=== PATIENT | female | born 1980 | race American Indian/Alaskan Native ===

== ENCOUNTER 2016-08-18 12:19 | Emergency (ER) | payer MEDICAID ==
[2016-08-18] MEDS ORDERED: ZOFRAN ONE (12:33)
[2016-08-18] MEDS ORDERED: ZOFRAN IV ONE (13:30)
[2016-08-18] MEDS ORDERED: NACL 0.9% 1000 ML 1,000 ML IV ONE (14:06)
[2016-08-18] MEDS ORDERED: ZOFRAN ODT PO/SL ONE (14:06)
[2016-08-18] MEDS ORDERED: PEPCID IV ONE (14:09)
[2016-08-18 14:53] LABS: Basophils % (Auto) 0.3 % (0.0-1.8); Eosinophils % (Auto) 0.1 % (0.0-4.3); Hematocrit 41.7 % (30.3-42.9); Hemoglobin 13.7 gm/dl (10.1-14.3); Mean Corpuscular HGB Conc 33 % (30-34); Mean Corpuscular Hemoglobin 29 pg (28-32); Mean Corpuscular Volume 88 fl (79-97); Platelet Count 211 K/mm3 (140-440); Red Blood Count 4.75 M/mm3 (3.65-5.03); Red Cell Distribution Width 14.1 % (13.2-15.2); White Blood Count 4.4 K/mm3 (4.5-11.0)
[2016-08-18 15:02] LABS: INR 0.91 (0.87-1.13); Partial Thromboplastin Time 28.9 Sec. (24.2-36.6)
[2016-08-18 15:03] LABS: Amylase 116 units/L (27-131); Anion Gap 17 mmol/L; Blood Urea Nitrogen 8 mg/dL (7-17); Calcium 9.2 mg/dL (8.4-10.2); Carbon Dioxide 29 mmol/L (22-30); Chloride 101.6 mmol/L (98-107); Creatine Kinase MB 1.8 ng/mL (0.0-4.0); Glucose 103 mg/dL (65-100); Potassium 3.8 mmol/L (3.6-5.0); Sodium 144 mmol/L (137-145)
[2016-08-18 15:05] LABS: Alanine Aminotransferase 10 units/L (7-56); Albumin 4.3 g/dL (3.9-5); Albumin/Globulin Ratio 1.3 %; Alkaline Phosphatase 46 units/L (35-129); Bilirubin,Total 0.4 mg/dL (0.1-1.2); Lipase 22 units/L (13-60); Total Protein 7.5 g/dL (6.3-8.2)
[2016-08-18 15:08] LABS: Bilirubin,Direct < 0.2 mg/dL (0-0.2)
[2016-08-18 16:18] LABS: Bilirubin,Urine NEG (Negative); Blood,Urine NEG (Negative); Ketones,Urine TR mg/dL (Negative); Leukocyte Esterase,Urine NEG (Negative); Mucus,Urine 3+ /HPF; Nitrite,Urine NEG (Negative); Urobilinogen,Urine < 2.0 mg/dL (<2.0)
--- NOTE | 2016-08-18 16:18 | Emergency Department Report ---
ED General Adult HPI - General Chief complaint: Nausea/Vomiting/Diarrhea Stated complaint: WEAKNESS Time Seen by Provider: 08/18/16 13:38 Source: patient, EMS Mode of arrival: Stretcher Limitations: No Limitations - History of Present Illness Initial comments: Patient complains of gastric pain nausea vomiting which occurred this morning. She states that she had a prior diagnostic study which may have shown Gastritis. She is a poor historian. She did have a CT at this facility which showed significant thickening of the gastric mucosa consistent with gastritis although a neoplastic process could not be excluded. The patient denies any chronic problems with reflux or indigestion. She denies any menstrual irregularities or vaginal discharge. She has not had any fever or chills. -: Gradual, hour(s) Location: abdomen Radiation: non-radiation Quality: aching Consistency: intermittent Improves with: none Worsens with: none Associated Symptoms: nausea/vomiting Treatments Prior to Arrival: none - Related Data Previous Rx's Medication Instructions Recorded Last Taken Type Lansoprazole [Prevacid] 15 mg PO BID #60 cap 08/18/16 Unknown Rx Ondansetron [Zofran Odt] 4 mg PO Q6H #7 tab.rapdis 08/18/16 Unknown Rx traMADol [Ultram] 50 mg PO Q6HR PRN #10 tablet 08/18/16 Unknown Rx Allergies Allergy/AdvReac Type Severity Reaction Status Date / Time No Known Allergies Allergy Unverified 04/14/14 05:20 ED Review of Systems ROS: Stated complaint: WEAKNESS Other details as noted in HPI Constitutional: denies: chills, fever Eyes: denies: eye pain, eye discharge, vision change ENT: denies: ear pain, throat pain Respiratory: denies: cough, shortness of breath, wheezing Cardiovascular: denies: chest pain, palpitations Endocrine: no symptoms reported Gastrointestinal: abdominal pain, nausea, vomiting. denies: diarrhea Genitourinary: denies: urgency, dysuria, discharge Musculoskeletal: denies: back pain, joint swelling, arthralgia Skin: denies: rash, lesions Neurological: denies: headache, weakness, paresthesias Psychiatric: denies: anxiety, depression Hematological/Lymphatic: denies: easy bleeding, easy bruising ED Past Medical Hx - Past Medical History Previous Medical History?: No Hx Hypertension: No Hx Heart Attack/AMI: No Hx Diabetes: No Hx Deep Vein Thrombosis: No Hx Liver Disease: No Hx Renal Disease: No Hx Sickle Cell Disease: No Hx Seizures: No Hx Asthma: No Hx COPD: No Hx HIV: No - Surgical History Past Surgical History?: Yes Additional Surgical History: 3. tubal ligation - Social History Smoking Status: Current Every Day Smoker Substance Use Type: None - Medications Home Medications: Home Medications Medication Instructions Recorded Confirmed Last Taken Type Lansoprazole [Prevacid] 15 mg PO BID #60 cap 08/18/16 Unknown Rx Ondansetron [Zofran Odt] 4 mg PO Q6H #7 tab.rapdis 08/18/16 Unknown Rx traMADol [Ultram] 50 mg PO Q6HR PRN #10 tablet 08/18/16 Unknown Rx ED Physical Exam - General Limitations: No Limitations General appearance: alert, in no apparent distress - Head Head exam: Present: atraumatic, normocephalic - Eye Eye exam: Present: normal appearance. Absent: scleral icterus - ENT ENT exam: Present: normal exam, mucous membranes moist - Neck Neck exam: Present: normal inspection - Respiratory Respiratory exam: Present: normal lung sounds bilaterally. Absent: respiratory distress - Cardiovascular Cardiovascular Exam: Present: regular rate, normal rhythm. Absent: systolic murmur, diastolic murmur, rubs, gallop - GI/Abdominal GI/Abdominal exam: Present: soft, normal bowel sounds. Absent: distended, tenderness, guarding, rebound, rigid - Extremities Exam Extremities exam: Present: normal inspection - Back Exam Back exam: Present: normal inspection - Neurological Exam Neurological exam: Present: alert, oriented X3, CN II-XII intact. Absent: motor sensory deficit - Psychiatric Psychiatric exam: Present: normal affect, normal mood - Skin Skin exam: Present: warm, dry, intact, normal color. Absent: rash ED Course Vital Signs 08/18/16 08/18/16 12:52 12:56 Temperature 98.1 F Pulse Rate 44 L Respiratory 18 Rate Blood Pressure 107/59 O2 Sat by Pulse 100 Oximetry - Reevaluation(s) Reevaluation #1: Previous radiologist raises the specter of a neoplastic process on the prior CT. Therefore I repeated the CT with oral and intravenous contrast. This time it was interpreted as and antral gastritis. The patient was clinically improved. She was desirous of discharge. She will be referred to a GI specialist. 02/04/17 19:31 Reevaluation #2: The patient has a history of bradycardia upon review of her prior vital signs. It was not persistent or symptomatic in the emergency department. 08/18/16 19:37 ED Medical Decision Making - Lab Data Result diagrams: 08/18/16 14:25 08/18/16 14:25 Laboratory Results - last 24 hr 08/18/16 08/18/16 08/18/16 14:25 14:25 14:25 WBC 4.4 L RBC 4.75 Hgb 13.7 Hct 41.7 MCV 88 MCH 29 MCHC 33 RDW 14.1 Plt Count 211 Lymph % (Auto) 10.4 L [place] % (Auto) 2.0 Eos % (Auto) 0.1 Baso % (Auto) 0.3 Lymph # 0.5 L [place] # 0.1 Eos # 0.0 Baso # 0.0 Seg Neutrophils % 87.2 H Seg Neutrophils # 3.8 PT 12.2 INR 0.91 APTT 28.9 Sodium 144 Potassium 3.8 Chloride 101.6 Carbon Dioxide 29 Anion Gap 17 BUN 8 Creatinine 0.8 Estimated GFR > 60 BUN/Creatinine Ratio 10.00 Glucose 103 H Calcium 9.2 Total Bilirubin Direct Bilirubin AST ALT Alkaline Phosphatase Total Creatine Kinase CK-MB (CK-2) CK-MB (CK-2) Rel Index Troponin T Total Protein Albumin Albumin/Globulin Ratio Amylase 116 Lipase 08/18/16 08/18/16 08/18/16 14:25 14:25 14:25 WBC RBC Hgb Hct MCV MCH MCHC RDW Plt Count Lymph % (Auto) [place] % (Auto) Eos % (Auto) Baso % (Auto) Lymph # [place] # Eos # Baso # Seg Neutrophils % Seg Neutrophils # PT INR APTT Sodium Potassium Chloride Carbon Dioxide Anion Gap BUN Creatinine Estimated GFR BUN/Creatinine Ratio Glucose Calcium Total Bilirubin 0.4 Direct Bilirubin < 0.2 AST 17 ALT 10 Alkaline Phosphatase 46 Total Creatine Kinase 407 H CK-MB (CK-2) 1.8 CK-MB (CK-2) Rel Index 0.4 Troponin T < 0.010 Total Protein 7.5 Albumin 4.3 Albumin/Globulin Ratio 1.3 Amylase Lipase 22 - EKG Data -: EKG Interpreted by Id EKG shows normal: sinus rhythm, axis, intervals, QRS complexes, ST-T waves Rate: bradycardia - EKG Data Interpretation: no acute changes - Radiology Data Radiology results: report reviewed Critical care attestation.: If time is entered above; I have spent that time in minutes in the direct care of this critically ill patient, excluding procedure time. ED Disposition Clinical Impression: Bradycardia Gastritis Qualifiers: Gastritis type: unspecified gastritis Chronicity: acute Gastritis bleeding: without bleeding Qualified Code(s): K29.00 - Acute gastritis without bleeding Disposition: DISCHARGED TO HOME OR SELFCARE Is pt being admited?: No Does the pt Need Aspirin: No Condition: Stable Instructions: Gastritis (ED) Additional Instructions: Avoid any stomach irritants to include aspirin arthritis pills or alcohol. Jung recommended further evaluation by a GI doctor. Rx as directed. Return any acute change or problem. Prescriptions: Lansoprazole [Prevacid] 15 mg PO BID #60 cap Ondansetron [Zofran Odt] 4 mg PO Q6H #7 tab.rapdis traMADol [Ultram] 50 mg PO Q6HR PRN #10 tablet PRN Reason: Pain Referrals: [facility] [Provider Group] - 3-5 Days [facility] [Provider Group] - 2-3 Days Time of Disposition: 19:38
[2016-08-18] MEDS ORDERED: NACL ONE (16:25)
--- NOTE | 2016-08-18 17:25 | Cat Scan Report ---
FINAL REPORT PROCEDURE: CT ABDOMEN PELVIS W CON TECHNIQUE: Computerized axial tomography of the abdomen and pelvis was performed after the IV injection of iodinated nonionic contrast. HISTORY: Vomiting previous abn CT abd pain COMPARISON: CT exam dated May 03, 2015 FINDINGS: Liver and spleen appear normal. Pancreas and gallbladder display no abnormalities. Adrenal glands and abdominal aorta are normal in size. No renal abnormality is seen. Normal appendix is seen. No evidence of bowel obstruction is seen. Antrum of the stomach may have mild wall thickening and edema as can be seen with gastritis. Mild free fluid is seen in the pelvis. Follicles are seen in the ovaries with a 1.4 cm left ovarian cyst. Rectosigmoid colon is not well-distended to evaluate the wall thickness but wall thickness is probably within normal limits. IMPRESSION: Possible changes of gastritis are seen in the antrum of the stomach. Mild free fluid in the deep pelvis is slightly greater than usually seen but is probably physiologic fluid or due to recently ruptured cyst. 1.4 cm left ovarian cyst is seen.
[2016-08-18 19:52] VITALS: BP 110/62
== END 2016-08-18 19:51 | disposition home or self-care (01) ==
LOC: ED 12:19
DX: K29.00 Acute gastritis without bleeding (principal); I49.8 Other specified cardiac arrhythmias; F17.200 Nicotine dependence, unspecified, uncomplicated
CPT/HCPCS: 36415; 74177; 80048; 80074; 81001; 81025; 82150; 82550; 82553; 83690; 84484; 85025; 85610; 85730; 93005; 93010; 96361; 96374; 96375; 99285; J2405; J7030; Q9967

== ENCOUNTER 2016-12-24 23:18 | Emergency (ER) | payer MEDICAID ==
[2016-12-25 00:35] VITALS: BP 105/54
[2016-12-25] MEDS ORDERED: ATARAX PO ONE (00:55)
--- NOTE | 2016-12-25 01:02 | Emergency Department Report ---
ED General Adult HPI - General Chief complaint: Skin Rash Stated complaint: RASH Time Seen by Provider: 12/25/16 00:48 Source: patient, RN notes reviewed Mode of arrival: Ambulatory Limitations: No Limitations - History of Present Illness Initial comments: This is a 36-year-old female. She is previously unknown to me. She presents to the ER complaining of rash. The rash has been present for 2 weeks. It started on the bilateral breasts, then migrated distally to the anterior abdominal wall, and migrated to the bilateral groins, and to the gluteal regions. Patient complains of itching. No fevers or chills. No chest pain or shortness of breath. No recent creams, colognes, or perfumes. Patient reports that she saw a physician for this 2 weeks ago, and was placed on a steroid pack and given a steroid shot. This helped her symptoms somewhat. The patient reports that she is not . -: Gradual Location: back, abdomen, lower extremity Severity scale (0 -10): 0 Quality: other (itchy) Improves with: medication Worsens with: none Associated Symptoms: denies other symptoms - Related Data Previous Rx's Medication Instructions Recorded Last Taken Type Lansoprazole [Prevacid] 15 mg PO BID #60 cap 08/18/16 Unknown Rx Ondansetron [Zofran Odt] 4 mg PO Q6H #7 tab.rapdis 08/18/16 Unknown Rx traMADol [Ultram] 50 mg PO Q6HR PRN #10 tablet 08/18/16 Unknown Rx Pramoxine HCl/Calamine [Calamine 177 ml TP BID #1 lotion 12/25/16 Unknown Rx Medicated Lotion] Triamcinolone Acetonide 60 ml TP TID #1 lotion 12/25/16 Unknown Rx [Triamcinolone 0.1% LOTION] hydrOXYzine HCL [Atarax] 25 mg PO Q6HR PRN #20 tablet 12/25/16 Unknown Rx Allergies Allergy/AdvReac Type Severity Reaction Status Date / Time No Known Allergies Allergy Unverified 04/14/14 05:20 ED Review of Systems ROS: Stated complaint: RASH Other details as noted in HPI Constitutional: denies: fever Eyes: denies: eye discharge Respiratory: denies: cough Cardiovascular: denies: chest pain Gastrointestinal: denies: vomiting Musculoskeletal: denies: arthralgia Skin: rash, lesions Neurological: denies: headache ED Past Medical Hx - Past Medical History Previous Medical History?: Yes Hx Hypertension: No Hx Heart Attack/AMI: No Hx Diabetes: No Hx Deep Vein Thrombosis: No Hx Liver Disease: No Hx Renal Disease: No Hx Sickle Cell Disease: No Hx Seizures: No Hx Asthma: No Hx COPD: No Hx HIV: No - Surgical History Past Surgical History?: Yes Additional Surgical History: 3. tubal ligation - Social History Smoking Status: Current Every Day Smoker Substance Use Type: Alcohol - Medications Home Medications: Home Medications Medication Instructions Recorded Confirmed Last Taken Type Lansoprazole [Prevacid] 15 mg PO BID #60 cap 08/18/16 Unknown Rx Ondansetron [Zofran Odt] 4 mg PO Q6H #7 tab.rapdis 08/18/16 Unknown Rx traMADol [Ultram] 50 mg PO Q6HR PRN #10 tablet 08/18/16 Unknown Rx Pramoxine HCl/Calamine [Calamine 177 ml TP BID #1 lotion 12/25/16 Unknown Rx Medicated Lotion] Triamcinolone Acetonide 60 ml TP TID #1 lotion 12/25/16 Unknown Rx [Triamcinolone 0.1% LOTION] hydrOXYzine HCL [Atarax] 25 mg PO Q6HR PRN #20 tablet 12/25/16 Unknown Rx ED Physical Exam - General Limitations: No Limitations General appearance: alert, in no apparent distress - Head Head exam: Present: atraumatic, normocephalic - Eye Eye exam: Present: normal appearance - ENT ENT exam: Present: normal exam, normal orophraynx, mucous membranes moist, TM's normal bilaterally, normal external ear exam - Neck Neck exam: Present: normal inspection, full ROM. Absent: tenderness, meningismus - Respiratory Respiratory exam: Present: normal lung sounds bilaterally, other (the bilateral breast exam is unremarkable. During the breast examination, I am escorted by nurse Robert Patel). Absent: respiratory distress, wheezes, rales, rhonchi, stridor, chest wall tenderness - Cardiovascular Cardiovascular Exam: Present: regular rate, normal rhythm, normal heart sounds. Absent: bradycardia, tachycardia, irregular rhythm, systolic murmur, diastolic murmur, rubs, gallop - GI/Abdominal GI/Abdominal exam: Present: soft, normal bowel sounds. Absent: distended, tenderness, guarding, rebound, rigid, pulsatile mass - Rectal Rectal exam: Present: normal inspection (hyperpigmentation is noted in the medial aspects of the bilateral gluteal regions.), other (escorted by KAM Patel) - External exam: Present: normal external exam, other (pigmentation is noted in the bilateral inguinal regions. There is no redness, pus or streaking. Escorted by nurse Ferrell) - Extremities Exam Extremities exam: Present: normal inspection, full ROM, normal capillary refill. Absent: tenderness, pedal edema, joint swelling, calf tenderness - Back Exam Back exam: Present: normal inspection, full ROM. Absent: tenderness, CVA tenderness (R), CVA tenderness (L), muscle spasm, paraspinal tenderness, vertebral tenderness - Neurological Exam Neurological exam: Present: alert, oriented X3, normal gait, other (Extraocular movements intact. Tongue midline. No facial droop. Facial sensation intact to light touch in the V1, V2, V3 distribution bilaterally. 5 and 5 strength in 4 extremities.. Sensation is intact to light touch in 4 extremities.). Absent : motor sensory deficit - Psychiatric Psychiatric exam: Present: normal affect, normal mood - Skin Skin exam: Present: warm, rash, other (on the bilateral inguinal regions, lower back, there appeared to be areas of hyperpigmented macular skin coloration. There is no redness, pus or streaking, there is no crepitus, and the compartments are soft.) ED Course Vital Signs 12/24/16 12/25/16 23:43 00:34 Temperature 98.1 F Pulse Rate 66 66 Respiratory 18 18 Rate Blood Pressure 106/38 Blood Pressure 105/54 [Right] O2 Sat by Pulse 97 100 Oximetry ED Medical Decision Making - Lab Data Vital Signs 12/24/16 12/25/16 23:43 00:34 Temperature 98.1 F Pulse Rate 66 66 Respiratory 18 18 Rate Blood Pressure 106/38 Blood Pressure 105/54 [Right] O2 Sat by Pulse 97 100 Oximetry - Medical Decision Making Differential diagnosis: Nonspecific dermatitis, dry skin Assessment and plan: 36-year-old female with nonspecific dermatosis. She is afebrile with reassuring vital signs, does not appear to be superinfected. She will be discharged with calamine, triamcinolone, Atarax, and she will be instructed to follow-up with an outpatient manager women. Return precautions are reviewed. Critical care attestation.: If time is entered above; I have spent that time in minutes in the direct care of this critically ill patient, excluding procedure time. ED Disposition Clinical Impression: Rash Disposition: DC-01 TO HOME OR SELFCARE Is pt being admited?: No Does the pt Need Aspirin: No Condition: Stable Instructions: Acute Rash (ED) Additional Instructions: Use the medications as directed. Follow up with listed cash management specialist within the next 10-14 days. Apply the calamine lotion to the affected areas ( excluding genitals, rectum, eyes) after showering. Return to the ER right away with fevers or chills, chest pain or shortness of breath, nausea or vomiting, inability to tolerate liquid feeds, fever and/or confusion. Prescriptions: hydrOXYzine HCL [Atarax] 25 mg PO Q6HR PRN #20 tablet PRN Reason: Itching Pramoxine HCl/Calamine [Calamine Medicated Lotion] 177 ml TP BID #1 lotion Triamcinolone Acetonide [Triamcinolone 0.1% LOTION] 60 ml TP TID #1 lotion Referrals: PRIMARY [facility]D [Referring] - 3-5 Days STEPHANIE CHAIDEZ MD [Staff Physician] - 3-5 Days
== END 2016-12-25 01:32 | disposition home or self-care (01) ==
LOC: ED 23:18
DX: R21 Rash and other nonspecific skin eruption (principal); F17.200 Nicotine dependence, unspecified, uncomplicated
CPT/HCPCS: 99282